=== PATIENT | female | born 1945 | race Caucasian/White ===

== ENCOUNTER 2022-05-06 09:23 | Emergency (ER) | payer OTHER ==
[~2022-05-06] VITALS: Ht 152.4 cm; Wt 59.0 kg
[2022-05-06 09:25] VITALS: BP_SYST 127
--- NOTE | 2022-05-06 09:30 | NUR ---
Patient triaged and placed in waiting room. VSS and patient appears in no acute distress at this time. Accompanied by DAUGHTER, awaiting available bed, and MD notified of need for MSE.
--- NOTE | 2022-05-06 09:35 | NUR ---
PT BIB DAUGHTER FROM HOME, AT 0500 PT SAT UP IN BED, FELT NAUSEOUS, WENT TO STAND UP AND WOKE UP ON THE FLOOR. PT STATES THE LEFT SIDE OF HER FACE HURTS (NOSE, LIP, CHEEK, CHIN). STATES STILL SLIGHTLY NAUSEOUS. PT IS AMBULATORY, [id number], VSS
--- NOTE | 2022-05-06 12:13 | NUR ---
MD DR CASAREZ AT BEDSIDE
[2022-05-06] MEDS ORDERED: HYDR-3917 PO (14:09)
[2022-05-06 14:24] VITALS: BP_SYST 127
--- NOTE | 2022-05-06 14:25 | NUR ---
Patient given written and verbal discharge instructions and verbalizes understanding. ER MD CASAREZ discussed with patient the results and treatment provided. Patient in stable condition. ID arm band removed. Rx of NORCO given. Patient educated on pain management and to follow up with PMD. Pain Scale 0/10. Opportunity for questions provided and answered. Medication side effect fact sheet provided.
== END 2022-05-06 14:25 | disposition home or self-care (01) ==
LOC: SED 09:23
DX: S02.609A Fracture of mandible, unspecified, initial encounter for closed fracture (principal); E11.9 Type 2 diabetes mellitus without complications; I10 Essential (primary) hypertension; Z79.899 Other long term (current) drug therapy; W18.2XXA Fall in (into) shower or empty bathtub, initial encounter; Y93.89 Activity, other specified; Y92.89 Other specified places as the place of occurrence of the external cause; Y99.8 Other external cause status
CPT/HCPCS: 70450-TC; 70486-TC; 76376; 81002; 82962; 93005; 99284